=== PATIENT | male | born 1960 | race Caucasian/White ===

== ENCOUNTER 2020-05-23 08:21 | Emergency (ER) | payer SELFPAY ==
[~2020-05-23] VITALS: Ht 182.9 cm; Wt 95.3 kg
--- NOTE | 2020-05-23 09:58 | Diagnostic Imaging Report ---
CT BRAIN [facility] HISTORY: Headache COMPARISON: None. TECHNIQUE: Noncontrast axial scans were obtained from skull base to the vertex. Coronal and sagittal reconstructions obtained from the axial data. One or more of the following dose reduction techniques were used: Automated exposure control, adjustment of the mA and/or kV according to patient size, and/or utilization of iterative reconstruction technique. DISCUSSION: Scalp/Skull: Unremarkable. Brain sulci: Appropriate for patient's age. Ventricles: Normal in size and configuration. No hydrocephalus. Incidental 0.6 cm hyperdense lesion in the anterior superior third ventricle is adjacent to the foramina of Monro; this is compatible with a colloid cyst. Extra-axial spaces: No masses or fluid collections. Parenchyma: Mild carotid siphon calcifications are present. No additional mass, hemorrhage, or large vascular territory acute infarct. Dural sinuses: No abnormal densities. Sellar/Suprasellar region: Intact. Skull base: Intact. Incidental findings: None. IMPRESSION: 1. No acute intracranial abnormalities. 2. 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 No ventriculomegaly. Signed by: Dr. Rommel Samuel M.D. on 05/23/2020 9:55 AM
--- OUTSIDE RECORDS SUMMARY | 2020-05-23 10:11 | XMS REPORT | Continuity of Care Document ---
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 Role Phone Tano HICKEY Unavailable Problems Condition Name Condition Details Condition Category Status Onset Date Resolution Date Last Treatment Date Treating Clinician Comments Source Attention Deficit Disorder Without Hyperactivity Attention Deficit Disorder Without Hyperactivity Active 07/09/2013 [facility] Problem Active 2013-07-09 15:15:12 Miya Bernard Allergies, Adverse Reactions, Alerts Allergy Name Allergy Type Status Severity Reaction(s) Onset Date Inacti ve Date Treating Clinician Comments Source No Known Drug Allergies No Known Drug Allergies Active Miya Bernard Family History Family Member Diagnosis Comments Start Date Stop Date Source Unknown Family Member Family History 2013-07-09 15:15:12 2 15:15:12 Miya Bernard Social History Social Habit Start Date Stop Date Quantity Comments Source Social History 2013-07-09 15:15:12 2013-07-09 15:15:12 Miya Bernard Medications Ordered Medication Name Filled Medication Name Start Date Stop Da te Current Medication? Ordering Clinician Indication Dosage Frequency Signature (SIG) Comments Components Source Focalin XR 15 MG Oral Capsule Extended Release 24 Hour 2013-07-09 15:15:12 Yes (Active) Miya Alejandra nn Focalin XR 30 MG Oral Capsule Extended Release 24 Hour 2013-07-09 15:15:12 Yes (Active) Miya Alejandra nn Wellbutrin XL 150 MG Oral Tablet Extended Release 24 Hour 2013-07-09 15:15:12 Yes (Active) Randy Castaneda Procedures This patient has no known procedures. Encounters Start Date/Time End Date/Time Encounter Type Admission Type [facility] Care Department Encounter ID Source 2013-07-09 09:15:12 2013-07-09 09:15:12 [id number] Results Test Description Test Time Test Comments Results Result Comments Source CT BRAIN WO-HOPD 2020-05-23 09:49:00 [facility] [address] [address] Patient Name: CONSTANCE AWAN MR #: [id number] : 1960 Age/Sex: 59/M Req #: [id number] Adm Physician: Ordered by: GOSIA HICKEY MD Report #: [id number] Location: [facility] Room/Bed: Procedure: [id number] HOPD/CT BRAIN WO-HOPD Exam Date: 05/23/20 Exam Time: 927 REPORT STATUS: Signed CT BRAIN WO-[facility]OPD HISTORY: Headache COMPARISON: None. TECHNIQUE: Noncontrast axial scans were obtained from skull base to the vertex. Coronal and sagittal reconstructions obtained from the axial data. One or more of the following dose reduction techniques were used: Automated exposure control, adjustment of the mA and/or kV according to patient size, and/or utilization of iterative reconstruction technique. DISCUSSION: Scalp/Skull: Unremarkable. Brain sulci: Appropriate for patient's age. Ventricles: Normal in size and configuration. No hydrocephalus. Incidental 0.6 cm hyperdense lesion in the anterior superior third ventricle is adjacent to the foramina of [place]; this is compatible with a colloid cyst. Extra-axial spaces: No masses or fluid collections. Parenchyma: Mild carotid siphon calcifications are present. No additional mass, hemorrhage, or large vascular territory acute infarct. Dural sinuses: No abnormal densities. Sellar/Suprasellar region: Intact. Skull base: Intact. Incidental findings: None. IMPRESSION: 1. No acute intracranial abnormalities. 2. 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 No ventriculomegaly. Signed by: Dr. Rommel Samuel M.D. on 05/23/2020 9:55 AM Dictated By: ROMMEL SAMUEL MD 4 Transcribed By: GALE on 05/23/20954 COPY TO: GOSIA HICKEY MD
--- OUTSIDE RECORDS SUMMARY | 2020-05-23 10:11 | XMS REPORT | Continuity of Care Document ---
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 Phone [employer] [employer] Information Exchange Unavailable Un available Problems Problem Status Onset Date Classification Date Reported Comments Source Attention Deficit Disorder Without Hyperactivity Active 07/09/2013 [facility] Medications Medication Details Route Status Patient Instructions Ordering Provider Order Date Source Focalin XR 15 MG Oral Capsule Extended Release 24 Hour (Active) Active [facility] Focalin XR 30 MG Oral Capsule Extended Release 24 Hour (Active) Active [facility] Wellbutrin XL 150 MG Oral Tablet Extende d Release 24 Hour (Active) A ctive [facility] Allergies, Adverse Reactions, Alerts Substance Category Reaction Severity Reaction type Status Date Reported Comments Source No Known Drug Allergies drug a llergy drug aller gy Active [facility] Immunizations Immunization Date Given Site Status Last Updated Comments Source Influenza 07/15/2012 completed [facility] Results No Data Provided for This Section Pathology Reports No Data Provided for This Section Diagnostic Reports No Data Provided for This Section Consultation Notes No Data Provided for This Section Discharge Summaries No Data Provided for This Section History and Physicals No Data Provided for This Section Vital Signs No Data Provided for This Section Encounters Location Location Details Encounter Type Encounter Number Reason For Visit Attending Provider ADM Date DC Date Status Source AUDIT [id number] 07/09/2013 07/09/2013 [facility] Procedures No Data Provided for This Section Assessment and Plan No Data Provided for This Section Plan of Care No Data Provided for This Section Social History Social History Date Source Marital History - Currently (Active) Alcohol Use (Active) Current Smoker (305.1); (Active) 07/09/2013 [facility] Family History Value Date S ource Maternal history of Leukemia (V16.6); (Active) Paternal history of Emphysema (Active) 07/09/2013 [facility] Advance Directives Order Name Results Value Date Source Advance Directives Advance Dir ectives No Advance Directives available. 07/09/2013 [facility] Functional Status No Data Provided for This Section
--- NOTE | 2020-05-23 10:22 | Emergency Department Note ---
History of Present Illnes History of Present Illness History of Present Illness This is a 59 year old male THIS IS AN EXTRA CHART, THAT WAS SOMEHOW CREATED. PLEASE DISREGARD THIS CHART. THERE IS ANOTHER CHART FOR THIS PATIENT ON THIS DOS, THAT HAS BEEN COMPLETED. THANKS! Historian: Patient Arrival Mode: Car Past Medical/Family History Physician Review I have reviewed the patient's past medical and family history. Any updates have been documented here. Past Medical History Recent Fever: No Clinical Suspicion of Infectio: No New/Unexplained Change in Ment: No Past Medical History: Hyperlipedemia Other Medical History: ADD Past Surgical History: T&A, Hernia Repair Social History Smoking Cessation: Current every day smoker Alcohol Use: None Any Illegal Drug Use: No Other Any Pre-Existing Lines (PICC,: No Physical Exam Related Data Triage Vital Signs Vital Signs Date Time Temp Pulse Resp B/P (MAP) Pulse Ox O2 Delivery O2 Flow Rate FiO2 05/23/20 08:33 98.1 86 16 181/91 99 Room Air Physical Exam CONSTITUTIONAL HENT EYES NECK PULMONARY CARDIOVASCULAR GASTROINTESTINAL GENITOURINARY SKIN MUSCULOSKELETAL NEUROLOGICAL PSYCHOLOGICAL Results Imaging Imaging results reviewed: Yes Impressions [address] [address] Patient Name: CONSTANCE AWAN MR #: [id number] : 1960 Age/Sex: 59/M Req #: [id number] Adm Physician: Ordered by: GOSIA HICKEY MD Report #: [id number] [facility] Room/Bed: ____ Procedure: [id number] HOPD/CT BRAIN WO-HOPD Exam Date: 05/23/20 Exam Time: 0928 REPORT STATUS: Signed CT BRAIN WO-HOPD HISTORY: Headache COMPARISON: None. TECHNIQUE: Noncontrast axial scans were obtained from skull base to the vertex. Coronal and sagittal reconstructions obtained from the axial data. One or more of the following dose reduction techniques were used: Automated exposure control, adjustment of the mA and/or kV according to patient size, and/or utilization of iterative reconstruction technique. DISCUSSION: Scalp/Skull: Unremarkable. Brain sulci: Appropriate for patient's age. Ventricles: Normal in size and configuration. No hydrocephalus. Incidental 0.6 cm hyperdense lesion in the anterior superior third ventricle is adjacent to the foramina of Monro; this is compatible with a colloid cyst. Extra-axial spaces: No masses or fluid collections. Parenchyma: Mild carotid siphon calcifications are present. No additional mass, hemorrhage, or large vascular territory acute infarct. Dural sinuses: No abnormal densities. Sellar/Suprasellar region: Intact. Skull base: Intact. Incidental findings: None. IMPRESSION: 1. No acute intracranial abnormalities. 2. 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 No ventriculomegaly. Signed by: Dr. Rommel Burdick M.D. on 05/23/2020 9:55 AM Dictated By: ROMMEL BURDICK MD 4 Transcribed By: GALE on 05/23/20954 COPY TO: GOSIA HICKEY MD~ Assessment & Plan Medical Decision Making MDM . Assessment & Plan Final Impression: (1) Acute tension headache Depart Disposition: HOME, SELF-CARE Last Vital Signs Date Time Temp Pulse Resp B/P (MAP) Pulse Ox O2 Delivery O2 Flow Rate FiO2 05/23/20 08:33 98.1 86 16 181/91 99 Room Air Home Meds Active Scripts Cyclobenzaprine Hcl (CYCLOBENZAPRINE HCL) 10 Mg Tablet, 1 TAB PO Q8H PRN for muscle spasm, #20 TAB 0 Refills Prov:GOSIA HICKEY MD 05/23/20 Butalb/Acetaminophen/Caffeine (Fioricet 50-300-40 mg Capsule) 1 Each Capsule, 1- 2 TAB PO Q6H PRN for headache, #20 TAB 0 Refills Prov:GOSIA HICKEY MD 05/23/20 GOSIA HICKEY MD May 23, 2020 10:22
[2020-05-23] MEDS ORDERED: FIORICET 50-301 EACH PO (10:46)
[2020-05-23] MEDS ORDERED: CYCLOBENZAPRINE10 MG PO (10:47)
--- NOTE | 2020-05-23 11:02 | Emergency Department Note ---
History of Present Illnes History of Present Illness Chief Complaint: Headache History of Present Illness This is a 59 year old male, with a history of ADD and hyperlipidemia who developed the onset of neck pain, radiating up to the back of his skull at approximately 8 AM, while at work. 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 He states he did not wake up with this pain. Patient describes it as a constant tightness/pressure in the back of his neck radiating up to the mid occiput. Patient states he feels like his head is in a vice. He does not have any history of headaches or hypertension. He's had no associated nausea, vomiting, visual changes, dizziness, numbness, tingling, or focal weakness. Patient denies any history of previous similar pain, and he denies any known trauma. There is no radiation of the pain into the shoulders or upper extremities. 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 Required: No Onset (how long ago): minute(s) (30) Location: neck and occipital area Quality: tightness/pressure Radiation: Reports non-radiation Severity: severe Onset quality: sudden Duration (how long): hour(s) (0.5) Progression: unchanged Chronicity: new Context: Denies recent illness, Denies recent travel, Denies trauma/injury, Denies new medications Relieving factors: none Exacerbating factors: none Associated symptoms: Denies confusion, Denies chest pain, Denies fever/chills, Denies nausea/vomiting, Denies shortness of breath, Denies weakness Treatments prior to arrival: none Past Medical/Family History Physician Review I have reviewed the patient's past medical and family history. Any updates have been documented here. Past Medical History Recent Fever: No Clinical Suspicion of Infectio: No New/Unexplained Change in Ment: No Past Medical History: Hyperlipedemia Other Medical History: ADD Past Surgical History: T&A, Hernia Repair Social History Smoking Cessation: Current every day smoker Counseling Performed: Yes Alcohol Use: None Any Illegal Drug Use: No TB Exposure/Symptoms: No Physically hurt or threatened: No Family History Family history of heart diseas: No Other Any Pre-Existing Lines (PICC,: No Is patient up to date on immun: No Review of Systems Review of Systems Constitutional: Denies chills, Denies fever, Denies weakness EENTM: Denies eye pain, Denies blurred vision, Denies double vision, Denies ear discharge Cardiovascular: Denies chest pain, Denies palpitations Respiratory: Denies cough, Denies dyspnea Gastrointestinal: Denies abdominal pain, Denies nausea, Denies vomiting Genitourinary: Reports no symptoms Musculoskeletal: Reports muscle pain (posterior neck;), Reports neck pain (without stiffness); Denies back pain Integumentary: Denies change in color, Denies rash Neurological: Reports headache; Denies numbness, Denies paresthesia, Denies tingling, Denies weakness Psychological: Reports no symptoms Endocrine: Reports no symptoms Hematological/Lymphatic: Reports no symptoms Review of other systems: All other systems negative Physical Exam Related Data Triage Vital Signs Vital Signs Date Time Temp Pulse Resp B/P (MAP) Pulse Ox O2 Delivery O2 Flow Rate FiO2 05/23/20 08:33 98.1 86 16 181/91 99 Room Air Vital signs reviewed: Yes Physical Exam CONSTITUTIONAL Constitutional: Present well-developed, Present well-nourished; Absent obese, Absent distressed, Absent ill appearing HENT HENT: Present normocephalic, Present atraumatic, Present oropharynx clear/moist, Present nose normal, Present dentition normal; Absent nasal congestion, Absent rhinorrhea HENT L/R: Present left TM normal, Present right TM normal, Present left ext ear normal, Present right ext ear normal EYES Eyes: Reports PERRL, Reports conjunctivae normal, Reports EOM normal NECK Neck: Present ROM normal, Present supple; Absent thyromegaly, Absent cervical adenopathy PULMONARY Pulmonary: Present effort normal, Present breath sounds normal CARDIOVASCULAR Cardiovascular: Present regular rhythm, Present heart sounds normal, Present capillary refill normal, Present normal rate; Absent murmur GASTROINTESTINAL Abdominal: Present soft, Present nontender, Present bowel sounds normal; Absent tender, Absent mass GENITOURINARY Genitourinary: Present exam deferred SKIN Skin: Present warm, Present dry; Absent rash MUSCULOSKELETAL Musculoskeletal: Present ROM normal NEUROLOGICAL Neurological: Present alert, Present oriented x 3, Present no gross motor or sensory deficits PSYCHOLOGICAL Psychological: Present mood/affect normal, Present judgement normal Results Laboratory Lab results reviewed: No Imaging Imaging results reviewed: Yes Impressions [facility] [address] [address] Patient Name: CONSTANCE AWAN MR #: [id number] : 1960 Age/Sex: 59/M Req #: [id number] [facility] Physician: Ordered by: GOSIA HICKEY MD Report #: [id number] Location: [facility] Room/Bed: Procedure: [id number] HOPD/CT BRAIN WO-HOPD Exam Date: 05/23/20 Exam Time: 927 REPORT STATUS: Signed CT BRAIN WO-HOPD HISTORY: Headache COMPARISON: None. TECHNIQUE: Noncontrast axial scans were obtained from skull base to the vertex. Coronal and sagittal reconstructions obtained from the axial data. One or more of the following dose reduction techniques were used: Automated exposure control, adjustment of the mA and/or kV according to patient size, and/or utilization of iterative reconstruction technique. DISCUSSION: Scalp/Skull: Unremarkable. Brain sulci: Appropriate for patient's age. Ventricles: Normal in size and configuration. No hydrocephalus. Incidental 0.6 cm hyperdense lesion in the anterior superior third ventricle is adjacent to the foramina of [place]; this is compatible with a colloid cyst. Extra-axial spaces: No masses or fluid collections. Parenchyma: Mild carotid siphon calcifications are present. No additional mass, hemorrhage, or large vascular territory acute infarct. Dural sinuses: No abnormal densities. Sellar/Suprasellar region: Intact. Skull base: Intact. Incidental findings: None. IMPRESSION: 1. No acute intracranial abnormalities. 2. 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 No ventriculomegaly. Signed by: Dr. Rommel Samuel M.D. on 05/23/2020 9:55 AM Dictated By: ROMMEL SAMUEL MD 4 Transcribed By: GALE on 05/23/20954 COPY TO: GOSIA HICKEY MD~ Assessment & Plan Medical Decision Making MDM - Pain greatly improved following application of ice pack. Reviewed results of CT scan with patient. - Apply ice to the back of your neck, frequently to help with the pain. - Take the medications, as directed, and do not drive or operate machinery, while taking the Fioricet and Cyclobenzaprine. - Follow-up with your PCP, Dr. Werner, regarding this ER, visit and your e levated blood pressure reading in the ER: 151/81 Assessment & Plan Final Impression: (1) Acute tension headache (2) Neck pain, bilateral (3) Muscle spasm (4) Hyperlipidemia (5) Elevated blood pressure reading Depart Disposition: HOME, SELF-CARE Last Vital Signs Date Time Temp Pulse Resp B/P (MAP) Pulse Ox O2 Delivery O2 Flow Rate FiO2 05/23/20 08:33 98.1 86 16 181/91 99 Room Air Home Meds Active Scripts Cyclobenzaprine Hcl (CYCLOBENZAPRINE HCL) 10 Mg Tablet, 1 TAB PO Q8H PRN for muscle spasm, #20 TAB 0 Refills Prov:GOSIA HICKEY MD 05/23/20 Butalb/Acetaminophen/Caffeine (Fioricet 50-300-40 mg Capsule) 1 Each Capsule, 1- 2 TAB PO Q6H PRN for headache, #20 TAB 0 Refills Prov:GOSIA HICKEY MD 05/23/20 GOSIA HICKEY MD May 23, 2020 11:02
== END 2020-05-23 11:01 | disposition home or self-care (01) ==
LOC: FSED 09:14
DX: G44.209 Tension-type headache, unspecified, not intractable (principal); M54.2 Cervicalgia; M62.838 Other muscle spasm; R03.0 Elevated blood-pressure reading, without diagnosis of hypertension; E78.5 Hyperlipidemia, unspecified; F98.8 Other specified behavioral and emotional disorders with onset usually occurring in childhood and adolescence; F17.210 Nicotine dependence, cigarettes, uncomplicated
CPT/HCPCS: 70450; 99283